=== PATIENT | female | born 1980 | race Two or more races ===

== ENCOUNTER 2021-10-23 12:57 | Emergency (ER) | payer MEDICAID, OTHER ==
[2021-10-23 14:42] LABS: Potassium 3.5 mmol/L (3.5-5.1)
[2021-10-23 14:46] LABS: INR 1.05 (0.9-1.15)
[2021-10-23 14:48] LABS: Albumin 3.4 g/dL (3.4-5.0); BUN/Creatinine Ratio 11.5; Bilirubin, Total 0.2 mg/dL (0.2-1.0); Calcium 8.4 mg/dL (8.5-10.1); Total Protein 7.4 g/dL (6.4-8.2)
[2021-10-23 15:03] LABS: Basophils # (auto) 0 10 ^3/uL (0-0.2); Basophils % (auto) 1.4 % (0.0-2.0); Eosinophils # (auto) 0 10 ^3/uL (0-0.8); Eosinophils % (auto) 0.6 % (0.0-7.0); Hematocrit 22.6 % (36.0-46.0); Lymphocytes % (auto) 30.3 % (10.0-50.0); Mean Corpuscular Hemoglobin 20.1 pg (28.0-32.0); Mean Corpuscular Hgb Conc. 30.6 g/dL (32.0-36.0); Mean Corpuscular Volume 65.7 fL (80.0-100.0); Monocytes # (auto) 0.4 10 ^3/uL (0-1.3); Monocytes % (auto) 12.3 % (0.0-12.0); Neutrophils # (auto) 1.8 10 ^3/uL (1.6-8.6); Neutrophils % (auto) 55.4 % (37.0-80.0); Red Blood Cells 3.45 10^6/uL (4.0-5.20); Red Cell Distribution Width 15.7 % (11.8-14.3); White Blood Cell 3.3 10^3/uL (4.4-10.8)
[2021-10-23 15:07] LABS: Hemoglobin 6.9 g/dL (12.2-16.2)
[2021-10-23 15:18] LABS: Partial Thromboplastin Time < 20.0 sec (23.6-33.0)
[2021-10-23 15:29] LABS: Urine Bacteria MANY /hpf (None Seen); Urine Blood Negative /uL (Negative); Urine Budding Yeast FEW /hpf (None Seen); Urine Specific Gravity 1.006 (1.001-1.035); Urine WBC 1 /hpf (0 - 5)
[2021-10-23 17:07] VITALS: BP 102/62
[2021-10-23 17:35] VITALS: BP 102/62
[2021-10-23 18:05] VITALS: BP 99/58
[2021-10-23] MEDS ORDERED: ACETAMINOPHEN 325 MG TAB PO ONE (18:30)
[2021-10-23 18:35] VITALS: BP 96/50
[2021-10-23 19:19] VITALS: BP_SYST 101; BP_SYST 95; BP_DIAS 60; BP_DIAS 66
[2021-10-23 20:38] LABS: Basophils # (auto) 0.1 10 ^3/uL (0-0.2); Hematocrit 25.5 % (36.0-46.0); Monocytes # (auto) 0.4 10 ^3/uL (0-1.3); Nucleated Red Blood Cells % 0.1 %
[2021-10-23 20:39] LABS: Basophils % (auto) 1.9 % (0.0-2.0); Eosinophils # (auto) 0.1 10 ^3/uL (0-0.8); Eosinophils % (auto) 1.6 % (0.0-7.0); Hemoglobin 8.2 g/dL (12.2-16.2); Lymphocytes # (auto) 1.5 10 ^3/uL (0.4-5.4); Lymphocytes % (auto) 34.7 % (10.0-50.0); Mean Corpuscular Hemoglobin 22.6 pg (28.0-32.0); Mean Corpuscular Hgb Conc. 32.1 g/dL (32.0-36.0); Mean Corpuscular Volume 70.5 fL (80.0-100.0); Monocytes % (auto) 9.9 % (0.0-12.0); Neutrophils # (auto) 2.2 10 ^3/uL (1.6-8.6); Neutrophils % (auto) 51.9 % (37.0-80.0); Red Blood Cells 3.62 10^6/uL (4.0-5.20); Red Cell Distribution Width 19.2 % (11.8-14.3); White Blood Cell 4.2 10^3/uL (4.4-10.8)
== END 2021-10-23 22:18 | disposition home or self-care (01) ==
LOC: ER 12:57
DX: D64.9 Anemia, unspecified (principal)
CPT/HCPCS: 36415; 36430; 80053; 81001; 81025; 85025; 85610; 85730; 86850; 86900; 86901; 86920; 99291; P9016